=== PATIENT | female | born 1975 | race Caucasian/White ===

== ENCOUNTER 2018-11-13 10:01 | Emergency (ER) | payer OTHER ==
[~2018-11-13] VITALS: Ht 175.3 cm; Wt 68.0 kg
[2018-11-13 10:01] VITALS: BP 108/63
[~2018-11-13 10:01] MED LIST: AMOX1TAB11 PO; no-kno
[2018-11-13] MEDS ORDERED: AZIT250T PO (11:12)
--- NOTE | 2018-11-13 11:12 | PHYS DOC ---
Past History Past Medical History: No Pertinent History Past Surgical History: Appendectomy Smoking: Non-smoker Alcohol Use: Occasionally Drug Use: None Adult General Chief Complaint Chief Complaint: SORE THROAT HPI HPI Patient is a 43-year-old female who presents with complaint of sore throat, body aches and chills. Patient states symptoms been present for the last 2 days but worse over the last 24 hours. She denies any vomiting or diarrhea. She does admit to mild cough. Review of Systems Review of Systems Constitutional: Denies fever or chills [] HENT: Positive congestion and sore throat [] Respiratory: Admits to cough without shortness of breath [] Cardiovascular: No additional information not addressed in HPI [] GI: Denies abdominal pain, nausea, vomiting, bloody stools or diarrhea [] Allergies Allergies Allergies Coded Allergies Type Severity Reaction Last Updated Verified No Known Drug Allergies 08/20/13 No Physical Exam Physical Exam Constitutional: Well developed, well nourished, no acute distress, non-toxic appearance. [] HENT: Normocephalic, atraumatic, bilateral external ears normal, there is pharyngeal erythema without exudates. [] Neck: Normal range of motion, no tenderness, supple, no stridor. [] Cardiovascular: Regular rate and rhythm[] Lungs & Thorax: Bilateral breath sounds clear to auscultation [] EKG EKG [] Radiology/Procedures Radiology/Procedures [] Course & Med Decision Making Course & Med Decision Making Pertinent Labs and Imaging studies reviewed. (See chart for details) [] Dragon Disclaimer Dragon Disclaimer This electronic medical record was generated, in whole or in part, using a voice recognition dictation system. Departure Departure: Impression: Primary Impression: Pharyngitis Disposition: 01 HOME, SELF-CARE Condition: STABLE Referrals: CHACHO VERMA (PCP) Patient Instructions: Viral and Bacterial Pharyngitis Scripts Azithromycin (ZITHROMAX) 250 Mg Tablet 1 PKG PO UD for infection, #6 TAB Prov: THADDEUS MEDRANO Jr. DO 11/13/18 Problem Qualifiers Primary Impression: Pharyngitis Pharyngitis/tonsillitis etiology: unspecified etiology Qualified Codes: J0 2.9 - Acute pharyngitis, unspecified THADDEUS MEDRANO Jr. DO November 13, 2018 11:12
== END 2018-11-13 11:43 | disposition home or self-care (01) ==
LOC: ER 10:01
DX: J02.9 Acute pharyngitis, unspecified (principal); Z90.89 Acquired absence of other organs
CPT/HCPCS: 87070; 87880; 99283

== ENCOUNTER 2019-04-01 09:41 | Emergency (ER) | payer OTHER ==
[~2019-04-01 09:41] MED LIST changes: +AZIT250T PO
[2019-04-01 10:03] VITALS: BP 129/84
[2019-04-01] MEDS ORDERED: MELO7.5T29 PO (10:11)
[2019-04-01] MEDS ORDERED: HYDR-3165 PO (10:11)
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
[2019-04-01] MEDS ORDERED: IBUPROFEN 600 MG TABLET. PO ONE (10:30)
[2019-04-01] MEDS ORDERED: HYDROcodone/APAP 5/325MG 1 TAB TABLET PO ONE (10:30)
== END 2019-04-01 10:01 | disposition home or self-care (01) ==
LOC: ER 09:41
DX: T21.17XA Burn of first degree of female genital region, initial encounter (principal); T31.0 Burns involving less than 10% of body surface; X10.0XXA Contact with hot drinks, initial encounter; Y93.89 Activity, other specified; Y92.89 Other specified places as the place of occurrence of the external cause; Y99.8 Other external cause status
CPT/HCPCS: 99283